=== PATIENT | male | born 1995 | race Caucasian/White ===

== ENCOUNTER 2023-12-16 12:48 | Emergency (ER) | payer SELFPAY ==
[~2023-12-16] VITALS: Ht 185.4 cm; Wt 64.4 kg
[2023-12-16] MEDS ORDERED: ACE65ERTAB PO (12:55)
[2023-12-16 14:50] VITALS: BP 135/83; TEMP 101.4; O2SAT 97
[2023-12-16] MEDS ORDERED: ONDA-282 PO (15:04)
[2023-12-16] MEDS: IBUPROFEN 600MG TAB PO ONE (15:21)
[2023-12-16] MEDS: ONDANSETRON 4MG ORAL DISINTEGRATING TAB PO ONE (15:21)
== END 2023-12-16 15:24 | disposition home or self-care (01) ==
LOC: M ED 12:48
DX: R11.10 Vomiting, unspecified (principal); B34.9 Viral infection, unspecified